=== PATIENT | male | born 1975 | race Caucasian/White ===

== ENCOUNTER 2016-02-07 16:39 | Inpatient (IN) | payer OTHER ==
[~2016-02-07 16:39] MED LIST: ATI1 PO; DES50 PO; PRO20 PO
[2016-02-07 21:07] VITALS: BP 166/116; PULSE 131; RESP 20
[2016-02-07] MEDS ORDERED: Magnesium Hydroxide 10 mL Oral Concentration PO PRN (21:55)
[2016-02-07] MEDS ORDERED: Alum-Mag Hydrox-Simeth 30 mL Suspension PO PRN (21:55)
[2016-02-07] MEDS ORDERED: Benzocaine-Menthol Lozenge 2/Pkg PO PRN (21:55)
[2016-02-07] MEDS: oxyCODONE-Acetamin 5-325 mg Tablet PO PRN (21:56)
[2016-02-07] MEDS: LORazepam 2 mg Tablet PO PRN (21:56)
[2016-02-07] MEDS ORDERED: LORazepam 2 mg Tablet PO ONE (22:50)
--- NOTE | 2016-02-08 04:20 | NUR ---
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 Reported increased depression, PTSD, alcohol intoxication and Suicidal ideation increasing over the last month. Pt with one previous psychiatric admission to this unit in 2012 presenting with similar complaints at that time. Pt also has chronic back pain currently being managed with Percocet Q4 hours. Reported binge drinking last three days and diagnosed with alcohol induced Gastritis at [facility]. Pt rates anxiety 9/10, depression 9/10, Suicidal ideation 0/10, denies A/V hallucinations. Pt presents with obvious muscle skeletal discomfort sitting awkwardly in chair with head down in a depressed manner. Pt reports heavy cloud like feeling with difficulty finding happiness with daily routine, and unable to initiate change or plan. Pt with many past stressor including loss of friends in , single father with two teenage children, and increased work load. 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 Reports long hours of difficult work has increased physical discomfort. Patient also reports his father committed suicide when he was [age] years old by gunshot. Pt noted to be hypertensive upon arrival medicated with Percocet and Ativan. BP slowly improving. Pt placed on Q4 hour vital signs with PRN parameters in place. Pt independent in ADLs, zero neuro deficit noted. Pt describes current pain unchanged from chronic location. Skin diaphoretic, patient requested and showered upon arrival to unit.
[2016-02-08] MEDS: LORazepam 2 mg Tablet PO PRN ×5 (04:28→20:50)
[2016-02-08] MEDS: oxyCODONE-Acetamin 5-325 mg Tablet PO PRN ×5 (04:31→20:54)
[2016-02-08 04:39] VITALS: BP 138/104; PULSE 102
--- NOTE | 2016-02-08 05:42 | NUR ---
Arrived to unit at 2031. Took shower and was out on unit watching TV for a while. Q4 VS due to high blood pressure. Asleep at 0030. Pt observed every 15 minutes as ordered.
[2016-02-08 08:15] VITALS: BP 146/106; PULSE 117; RESP 16
[2016-02-08] MEDS: Pantoprazole 40 mg ER24 Tablet PO SCH (08:25)
[2016-02-08 12:15] VITALS: BP 153/117; PULSE 108; RESP 16
[2016-02-08] MEDS ORDERED: OMEP20TA24 PO (12:41)
[2016-02-08] MEDS ORDERED: OXYC1TAB24 PO (12:41)
[2016-02-08] MEDS ORDERED: METH500T5 PO (17:00)
--- NOTE | 2016-02-08 18:45 | NUR ---
[id number]. nurs. S: "(Pain and anxiety) both pretty much went down from 7.5 to about a 5 then back up'... anxiety was worse when I was out there () with a lot of people and noise . " O:Pt on Q 4 hr VS, pt has been meeting parameters for admin of pain med and anxiety meds over day, receiving ativan 2 mg for anxiety and oxycodone 5/325mg for back pain at between 4-5 hr intervals over day. 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 Pt hopes to get good sleep and feel improved in am. Pt reports that he feels that he had good talk with Dr and has good plan. P:CNCP
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
--- NOTE | 2016-02-08 21:38 | NUR ---
OBSERVATIONS 0900 TO 2130 Pt spent the day in bed and in the TV area with peers. Pt social, cooperative, and polite with staff and peers; telling jokes. Maintained Q15 safety checks as directed.
[2016-02-09 00:30] VITALS: BP 108/75; PULSE 102
[2016-02-09] MEDS: LORazepam 2 mg Tablet PO PRN (04:43)
[2016-02-09] MEDS: oxyCODONE-Acetamin 5-325 mg Tablet PO PRN ×5 (04:43→23:03)
[2016-02-09 05:04] VITALS: BP 129/90; PULSE 95; RESP 14
--- NOTE | 2016-02-09 05:06 | NUR ---
Nursing Noc Pt spent most of evening in bed. Q4 VS continued as ordered. Pt reports c/o back pain with good results, lower back pain number to 4/10 from 09/17. Pt reports he will try to be more active today with hopes of improved comfort. Pt noted to have six plus hours of sleep this shift. Continuing to monitor Q15 minute safety checks, mood behavior, emotional state, and medication effectiveness. CP
[2016-02-09] MEDS: Pantoprazole 40 mg ER24 Tablet PO SCH (08:21)
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
[2016-02-09 11:00] VITALS: BP 137/99; PULSE 132; RESP 18
--- NOTE | 2016-02-09 14:55 | NUR ---
[id number]. nurs. S: "Slept hard without nightmares last night... I miss my boys...worried about what to do about work I like my job.. I have tried back braces, tens units, didn't help much...I need surgery to break the fusion put something between the vertebrae takes money can't afford it..if the VA claim came through..." O: Pt stating pain has been up to 8 /10 and down to 61/2 requesting and given percocet 5mg at 0443, 0909 and at 1446. Pt receiving valium at 0934 and 1239 for elevated b/p and HR, at 1439 b/p 137/99, pulse 132. but stating anxiety was "not so bad " at that time but pain was severe and pt given percocet as mentioned above at 1446. Pt stated had been sleeping well over morning while in bed rather than ruminating re pxs pain causing him currently. A: Pt reporting depression at 9/10, anxiety at 5-6/10, no SI. 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
[2016-02-09 15:40] VITALS: BP 139/106; PULSE 128; RESP 16
--- NOTE | 2016-02-09 18:28 | NUR ---
[facility] Day Shift Pt maintained behavioral control throughout the shift. Pt affect appears flat. Pt spends most of the AM and early afternoon resting in his room. Pt more active on the unit in the evening, watching TV or sitting quietly in the dining room. Pt is appropriate with staff and peers when active on the unit. Pt did not attend community meeting in the AM (pt excused from attending due to back pain). Pt lightly participated in unit group activities throughout the shift. Pt attended all meals and ate approx 100% of all meals.
[2016-02-09 18:30] VITALS: BP 141/99; PULSE 132; RESP 16
--- NOTE | 2016-02-09 18:50 | PCM.PNPSY ---
Subjective Date of Service Feb 09, 2016 Subjective The patient reports that he is feeling "overwhelmed" but that his flashbacks and depression are a little better. He reports some sedation although blood pressure has remained elevated, he was normotensive at 0504 this morning and was 139/106 with a heart rate of 128 this afternoon. Due to the ongoing need for lorazepam, he was switched to diazepam scheduled and he appears to be tolerating this medication. He denies side effects. He is unsure whether he will call his son's to check in on them today as he feels that he has let them down. Sleep: 7.5+ hours, "sleep is better and " Appetite: "Pretty good" Suicidal and homicidal ideation: Denies Auditory hallucinations: Denies Visual hallucinations: Denies Other Psychotic Symptoms: Denies Anxiety: "Feeling overwhelmed and "08/17 Depression: 08/17 Current Medications Current Medications Diazepam 10 mg QID PO Last administered on 02/09/16 17:59; Admin Dose 10 MG; Start 02/09/16 at 09:25 Lorazepam 2 mg OT ONCE PO Last administered on 02/07/16at 23:15; Admin Dose 2 MG; Start 02/07/16 at 22:50; Stop 02/07/16 at 22:51; Status DC Lorazepam 2 mg Q4H PRN PO Last administered on 02/09/16 04:43; Admin Dose 2 MG ; Start 02/07/16 at 21:55; Stop 02/09/16 at 09:17; Status DC Mirtazapine 30 mg HS PO Last administered on 02/08/16at 20:50; Admin Dose 30 MG ; Start 02/08/16 at 21:00 Oxycodone/ Acetaminophen 1 tab Q4H PRN PO Last administered on 02/09/16 14:46; Admin Dose 1 TAB; Start 02/07/16 at 21:55 Pantoprazole 40 mg DAILY PO Last administered on 02/09/16 08:21; Admin Dose 40 MG; Start 02/08/16 at 08:30 Mental Status Exam Vital Signs Vital Signs Date Time Temp Pulse Resp B/P Pulse Ox O2 Delivery O2 Flow Rate FiO2 02/09/16 15:40 36.0 128 16 139/106 Appearance: Neat/well groomed, Unkept (slightly) Attitude: Cooperative (minimally) Behavior: Overtly anxious Affect: Blunted Mood: Depressed Thought Process/Associations: Logical/Sequential, Goal Directed Speech Production: Paucity Speech Rate: Lags/Latency Speech Articulation: Normal Thought Content: Negativistic, Guilt Danger to Self/Suicidal Ideati: None Danger to Others: None Hallucinations: Auditory (Denies), Visual (Denies) Consciousness: Alert Orientation: Person, Place, Date, Situation Memory: Grossly Intact Estimate Intellectual Function: Average Attention/Concentration & Cogn: Grossly Intact Insight: Good Judgement: Limited Mental Health Plan The patient is a 40-year-old male with an 8+ year history of depression and post -traumatic stress disorder and substance use who presents with recent alcohol intoxication due to worsening depression and post-traumatic stress disorder. The patient has not been on medications for a number of years and would like to restart medications. He has so far tolerated mirtazapine with improved sleep and appetite. The patient continues to have elevated blood pressure and so was placed on scheduled diazepam 10 mg 4 times a day. [place] I: 1. Major depression, recurrent, severe, without psychosis 2. Post-traumatic stress disorder. 3. Alcohol use disorder. [place] II: Deferred. [place] III: See past medical history. [place] IV: Moderate to severe. [place] V: Global Assessment of Functioning 35. Medications Diazepam 10 mg by mouth 4 times a day, hold for sedation. Oxycodone acetaminophen 5- 325 every 4 hours when necessary pain Pantoprazole 40 mg daily Mirtazapine 30 mg by mouth nightly Trazodone 50 mg by mouth nightly when necessary insomnia Treatments 1. The patient will be provided a safe care environment. He is not currently expressing suicidal ideation and agrees to notify staff should this occur. As such, he does not require individual one-to-one supervision suicide precautions. 2. The patient is encouraged to participate in group and milieu therapy. 3. The patient will meet with the treatment team on a daily basis to discuss symptoms, side effects, and response to treatment. 4. The patient was given informed consent regarding mirtazapine and agreed to continue. Attempts were made to verify the most recent dose of medications; however, the pharmacy was unable to provide this information as their records did not go back that far. They advised calling the following number on Wednesday or Wednesday for that information: or to call [employer] service at [phone]. We will start at 30 mg nightly until verified and may increase to 45 or 60 mg depending on prior response. 5. We discussed the use of Prazosin for nightmares and if mirtazapine ineffective we will prescribe prazosin for nightmares. 6. The patient's elevated blood pressure is being addressed currently with diazepam for presumptive alcohol withdrawal symptoms. If this does not eventually return to normal, the patient may need antihypertensives and as such prazosin may be beneficial in reducing blood pressure and addressing posttraumatic stress disorder symptoms. 7. Trazodone 50 mg p.o. nightly p.r.n. insomnia. 8. Pantoprazole 40 mg daily for alcoholic gastritis prophylaxis. Frankie Gomez MD Feb 09, 2016 18:50
[2016-02-09 23:00] VITALS: BP 141/104; PULSE 131; RESP 18
[2016-02-10 03:00] VITALS: BP 121/84; PULSE 87; RESP 14
[2016-02-10] MEDS: oxyCODONE-Acetamin 5-325 mg Tablet PO PRN ×5 (03:01→19:25)
--- NOTE | 2016-02-10 05:39 | NUR ---
Nursing noc Pt reports lack of activity since arrival has increased chronic back pain. K-pad in use for comfort. Pt continues to ask for PRN pain medication to be given as available including to wake him if sleeping. Pt denies Suicidal ideation and appears more relaxed and conversational. Noted to attend evening wrap up and have snacks. First noted, by Q15 minute safety checks to be asleep at 0015. Continuing to monitor mood, behavior, emotional state, and medication effectiveness. Pt tollerating Remeron without reported side effects. CP
--- NOTE | 2016-02-10 06:29 | NUR ---
OBSERVATIONS 1900 TO 0700 Pt appears more comfortable and at-ease than previous shift. Pt socialized with peers in TV and dining areas throughout the evening. Pt attended evening wrap-up and stated that he accomplished goals of showering and having a good day. Pt rated mood 6-10. Pt c/o back pain later in the evening causing difficulty falling asleep. Pt first noted asleep 0015, woke briefly twice. Maintained Q15 checks for safety as directed.
[2016-02-10] MEDS: Pantoprazole 40 mg ER24 Tablet PO SCH (08:21)
--- NOTE | 2016-02-10 13:25 | NUR ---
Auto Tester./ c.m. S.:"I'm a little drowsy. I have less pain today and my withdrawal is less." O.: met with pt. in his room. He was in bed resting. He slept "good" last night. He had "a very strange, funny dream that was going on and on about my friend who committed suicide." He was talking about his father who tried to kill himself and how it effected everybody. He felt a lot of guilt for not helping his father or his friend. He didn't call his kids yesterday. He said that he would call them today. He was concerned about his kids reaction on this hospitalization. He denied SI/HI, denied AH/VH. He wanted to get help with connection to [facility] in [facility]. He rated depression at 6/10 and anxiety at 6/10. A.: pt. is cooperative, isolative, quiet, anxious and worried a lot. P.: monitor behavior, encourage pt. to stay more in a public area, contact Pain Clinic in [facility]; follow care plan.
--- NOTE | 2016-02-10 14:11 | NUR ---
Nursing Note [id number] Behavior, PRN Medications S/O: Pt up for meals. Good appetite. Conversation tracking clear & organized with normal rate & rhythm. Pt is extremely polite & cooperative. C/O back pain several times during the day. Percocet given prior to shift. Pain reduced from an "8" on a scale of 1-10/10 the worst down to a "6." Percocet given again at 1130 for pain at a "7" which was reduced to a "5." Pt c/o anxiety at 1235. B/P 141/98, pulse 134, & respirations 17. Pt requested Valium 5 mg be given instead of 10 mg d/t higher dose make him "tired." Pt currently in TV area talking to peers. A: Pt has difficulty controlling pain & emotions. P: Provide supportive environment. Monitor medications & effects.
--- NOTE | 2016-02-10 20:17 | PROG NOTE ---
[address] [address] PROGRESS NOTE PATIENT: TOM BOURGEOIS : 1975 MR#: [id number] ADMIT: 02/07/2016 JOB ID: [id number] DATE: 02/10/2016 CHIEF COMPLAINT: "I think it is a good idea, I really do not have anybody to talk to, my brother just tells me to "suck it up." This is per patient report. HISTORY OF PRESENT ILLNESS: As stated above, the patient met with myself and Mindy as well as later in the hallway discussing the above presentation. The patient identified that he does feel at the beginning of January that he began to fall back into another episode of depression. He indicated that, unfortunately, he had turned to alcohol which only made things worse. He is glad that he has been re-initiated on medications including Remeron currently dispensed at 30 mg q.h.s. indicating that it was effective for him in the past. He identified that he would be willing to follow up with outpatient counseling as well as medication management and also will return to local chapters in [place]. MENTAL STATUS EXAM: He was bright, cooperative, interactive. He maintained good eye contact throughout. His speech was of normal tone, frequency, and volume. His mood was neutral. His affect is congruent. He denied any evidence of current suicidal, homicidal ideation. He denied any active hallucinations, delusions. No evidence of paranoia. He was alert, oriented to time and place. Attention and concentration intact. Insight and judgment are gaining. PHYSICAL EXAMINATION: Vital signs are current. Temperature is 36.4, pulse 87, respirations 14, BP 121/84. MEDICATION REVIEW: Includes: 1. Remeron 30 mg q.h.s. 2. Valium 10 mg q.i.d. 3. Trazodone 50 mg p.r.n. at h.s. 4. Percocet 1 tablet q.4 h. p.r.n. for pain. ASSESSMENT: [place] I 1. Major depressive disorder, recurrent type, nonpsychotic. 2. Posttraumatic stress disorder, chronic. 3. Alcohol use disorder. [place] II Deferred. [place] III History of chronic pain. [place] IV Stressors are noted for history of chronic pain, significant intensification of depressive symptoms, recent alcohol use. [place] V Global Assessment of Functioning: Current 35. PLAN: 1. Recommendations for continuation of Remeron 30 mg q.h.s. 2. Recommendations for p.r.n. transition of Valium to q.i.d. versus scheduled. 3. Recommended followup including outpatient individual therapy, medication management, and local support chapters for AA in [place]. 4. Recommended probable discharge within the next 48 hours.
[2016-02-11] MEDS: oxyCODONE-Acetamin 5-325 mg Tablet PO PRN ×6 (00:07→22:36)
[2016-02-11 00:28] VITALS: BP 110/71; PULSE 102
--- NOTE | 2016-02-11 02:43 | NUR ---
Observations 1900 to 0700 Pt affect and behavior remains the same as in previous shifts worked. Pt was out in the DR for quite some time last night. Pt watched TV and attended group last night. Pt was polite and cooperative. Pt first appeared asleep at 21:30 and was observed every 15 minutes through the night as directed.
--- NOTE | 2016-02-11 06:30 | NUR ---
Nursing note NOC Patient woke 3+ times over noc shift. C/O 7-8-9/10 back pain. Accepted oxycodone/apap 5/325mg prn at 1925, 0007, 0554 this shift. Very pleasant, "Yes, Maam". States he served in the . Declined crackers with medication. Accepted water. States he has enough pillows. BP this shift WNL.
[2016-02-11] MEDS: Pantoprazole 40 mg ER24 Tablet PO SCH (08:21)
[2016-02-11 10:00] VITALS: BP 140/103; PULSE 138; RESP 17
--- NOTE | 2016-02-11 15:10 | PROG NOTE ---
[address] [address] PROGRESS NOTE PATIENT: TOM BOURGEOIS : 1975 MR#: [id number] ADMIT: 02/07/2016 JOB ID: [id number] DATE: 02/11/2016 CHIEF COMPLAINT: "I hope I can get an appointment with [facility]." This is per patient report. HISTORY OF PRESENT ILLNESS: As stated above, the patient identified that he is awaiting a call back from [facility] in reference to his chronic difficulties with low back pain. He reports that he is aware that otherwise there are appointments scheduled for him for both a psychiatrist and therapist. He reports that he continues to feel somewhat depressed indicating that he has not had contact with his son at this time but hopes that he will make connections later on this afternoon. He denies any evidence of other distress. OBJECTIVE: On mental status exam, he was bright, cooperative, interactive. He maintained good eye contact. His speech was of normal tone, frequency, and volume. His mood was neutral. Affect was congruent. Thought process showed no evidence of random flight of ideas, loose or disconnected thinking. Thought content, he denied any evidence of current suicidal or homicidal ideation. No evidence of active hallucinations or delusions. He was alert, oriented to time, place, situation. Insight and judgment are fair. PHYSICAL EXAMINATION: Vital signs of current. Temperature is 36.5, pulse 138, respirations 17, BP 140/103. CURRENT MEDICATIONS: Include: 1. Valium 5 mg q.i.d. p.r.n. 2. Remeron 30 mg q.h.s. 3. Trazodone 50 mg h.s. p.r.n. 4. Percocet 5/325, 1 tablet q.4 h. ASSESSMENT: AXIS I 1. Major depressive disorder, recurrent type, nonpsychotic. 2. Posttraumatic stress disorder, chronic. AXIS II Deferred. AXIS III Chronic pain. AXIS IV Stressors are noted for chronic mental health issues, chronic pain. AXIS V Global Assessment of Functioning current 40. PLAN: 1. Recommendation is to discharge tomorrow for continuation of aftercare. 2. Recommendation is for continuation of all medications as noted.
--- NOTE | 2016-02-11 15:55 | NUR ---
Snake Charmer./ c.m. S.:"I'm feeling so-so..." O.: met with pt. to discuss his discharge plan. Pt. denied SI/HI, denied AH/VH or paranoid/delusional thoughts. He was concerned about having "vivid dreams" because "usually" he didn't have dreams at all. He rated depression at 8/10 and anxiety at 6/10. He didn't have a chance to talk to his children yet. He is planing to do it tonight. He was pleased to know about all scheduled follow up appts including [facility] in [place]. Pt. wants to go home tomorrow. A.: pt. is cooperative, more social with peers. P.: monitor behavior, work on Safety plan, follow care plan.
--- NOTE | 2016-02-11 16:56 | NUR ---
Observations 5085-2118 Pt was asleep upon start of shift. He attended breakfast, eating 100%. Pt appeared quiet and isolated at times, appearing to be deep in thought. Although he did spend the afternoon and evening in the common areas with peers socializing more. Pt attended lunch and dinner, eating 100%. Pt shared with this creative services writer that he lives in [place] and is a [place]. He stated that he missed his kids. Pt was noticeably more engaged with others then in previous days and spent less time in bed. Pt was observed every 15 minutes of shift as directed.
--- NOTE | 2016-02-11 18:31 | NUR ---
Nursing: Day shift: "I spoke to my brother and he would not let me speak to my boys. He says he is taking care of them now. He isn't supportive. " Pt feels very upset because of information received by phone call with his brother. He has sad facial expression PRN meds. Has asked for and received Valium 5 mg x 2 and percocet x3 during this shift. pain is at 8/10 when he receives mds and he gets relief to about 6/10. He is aware that the plan is to discharge tomorrow. He is happy about discharge f/u plans and future oriented. A: Depressed. Anxious. In pain. P: Supportive approach.
--- NOTE | 2016-02-12 02:09 | NUR ---
Observations 1900 to 0700 Pt affect and behavior remains the same as in previous shifts worked. Pt was out in the DR for quite some time last night. Pt watched TV and attended group last night. Pt first appeared asleep at 00:00 and was observed every 15 minutes through the night as directed.
[2016-02-12] MEDS: oxyCODONE-Acetamin 5-325 mg Tablet PO PRN ×4 (05:49→20:46)
--- NOTE | 2016-02-12 06:08 | NUR ---
Nursing Noc Pt presents very anxious and depressed this shift. Pt reports being depressed that his brother is treating him this way. Brother refusing to come get patient. Pt will need assistance getting back to [place]. Pt requested phone number to [place] [facility] program as he was once a member and believes a sponsor might be helpful. Brother reportedly it taking care of patients children and told patient that they don't want to come back to him. AA phone # . Continuing to monitor safety with Q15 minute visual checks, mood, behavior, emotional state, medication effectiveness and sleep time. BHCP.
[2016-02-12] MEDS: Pantoprazole 40 mg ER24 Tablet PO SCH (08:02)
--- NOTE | 2016-02-12 09:06 | PCM.DIMED ---
Discharge Instructions Date of Service Feb 12, 2016 Dates of Hospitalization Feb 07, 2016 at 20:40 Discharge Diagnosis Discharge Diagnosis Major Depression Recurrent Nonpsychotic PTSD chronic Diet No restrictions Activity No restrictions Bishop Bowen DO Feb 12, 2016 09:06
[2016-02-12] MEDS ORDERED: DIAZ5TAB PO (09:10)
[2016-02-12] MEDS ORDERED: OXYC1TAB24 PO (09:10)
[2016-02-12] MEDS ORDERED: MIRT30TA6 PO (09:10)
--- NOTE | 2016-02-12 13:52 | PROG NOTE ---
[address] [address] PROGRESS NOTE PATIENT: TOM BOURGEOIS : 1975 MR#: [id number] ADMIT: 02/07/2016 JOB ID: [id number] DATE: 02/12/2016 CHIEF COMPLAINT: "I had a long conversation with my brother, he said some pretty horrible things, I do not feel like I am ready to leave yet, I'm afraid that if I was left alone that I would only drink and become suicidal." HISTORY OF PRESENT ILLNESS: As stated above, the patient identified that last evening he had a lengthy conversation with his brother on the telephone indicating that he was not going to be returning his 13 and 11-year-old son. The patient became quite tearful stating that he feels that he is losing control of his life. He openly identified that he will be placing calls with his sponsor from to get further support and indicates that he feels that the sponsor will be able to actually transport him back home as well. He indicates that he is ready to allow his two sons, ages 13 and 11, to make a decision on their own when they are ready to come back home. He openly identified that he feels overwhelmed, rejected by his brother and struggles with significant feeling of emptiness. OBJECTIVE: On mental status examination, he is tearful throughout. He made intermittent eye contact. His speech was slow to respond. His mood was depressed. His affect was congruent. His thought process showed no evidence of current flight of ideas, loose or disconnected thinking. No racing thoughts. Thought content: He denied any evidence of current homicidal ideation. He did have fleeting suicidal thoughts last evening. He denies any active hallucinations or delusions. He was alert, oriented to person, place, time, situation. Insight and judgment are fair. PHYSICAL EXAMINATION: All vital signs are current. Temperature is 36.5, pulse 138, respirations 17, BP 141/100. MEDICATION REVIEW: Includes: 1. Valium 5 mg 4x daily p.r.n. 2. Remeron 30 mg q.h.s. 3. Oxycodone 1 tablet q.4 hours p.r.n. for pain. ASSESSMENT: AXIS I 1. Major depressive disorder, recurrent type, nonpsychotic. 2. Alcohol use disorder, mild. 3. Posttraumatic stress disorder, chronic. AXIS II Deferred. AXIS III History of chronic pain. AXIS IV Stressors are noted for recurrent alcohol use issues, significant life transition. AXIS V Global assessment of functioning of current 40. PLANS: 1. Recommendations for continuation of hospitalization with probable plan of discharge tomorrow. 2. The patient will be calling his friends and support system through the local AA chapters for transport tomorrow. 3. Followup as previously noted with outpatient care providers including psychiatrist, individual therapist and local AA support groups.
--- NOTE | 2016-02-12 15:32 | NUR ---
Obs Dayshift Pt stated that today was a little better than yesterday, not as upset as he was last night. Pt was relieved after talking w/ that he would be staying until tomorrow, giving him a little more time to get ahold of support people from [employer] and so he wouldn't have to depend on brother. Pt also spoke w/ his Boss and was smiling because he was told that he was appreciated at work and they were happy to get him back when he was able. Pt also found out he had more insurance than what he had previously thought that would back pay him for sometime off of work. Pt is hopeful for the future, depressed, ok eye contact, head still down at times, very polite, linear and Oriented. Pt hopeful to get his kids back from brother soon. Good ADL's, Good meals
--- NOTE | 2016-02-12 16:59 | NUR ---
[id number]. nurs. S: "That was my AA sponsor he said he will be able to help me clean up the mess, the mess I left when I was drinking and the other mess I have made of things" O: Pt stated that he was able to speak on phone to prev. AA sponsor who is available to stay with him as he restabilizes at home. Pt states that his employer has also told him that he can be on light duties when he returns to work and he is hopeful that his pain clinic apt will be helpful. A: Pt received anxiety and pain medications of Valium and Percocet at 0549, 1156 and 1637, stating anxiety was reduced to a 2/10 and went up to 8/10 with anxiety re. discharging home. Pt states pain ranging between 7 and 5/10 after med wking. Pt reports that he has no current SI. Pt states that he gets on well with sponsor and employment associates and is hopeful that he can progress towards building relationship with sons. P:CNCP
--- NOTE | 2016-02-12 18:19 | NUR ---
Case Management/Counseling: S: "I'm afraid if I leave the hospital today, I might make bad choices." O: Met with patient. Patient slept 6+ hours last night per staff. He denies S/I and H/I. He also denies auditory and visual hallucinations. Depression is 5/10 and anxiety is 4/10. A: Patient is cooperative, tearful, depressed, sad, fair insight, fair judgment. P: Follow care plan, coordinate out-patient providers.
[2016-02-12 22:15] VITALS: BP 143/100; PULSE 123
--- NOTE | 2016-02-13 05:43 | NUR ---
Nursing Noc Pt presents interactiving with staff and patients carrying conversation and laughing appropriately. Planned discharge in am. Continuing to monitor sleep by Q15 minute safety checks, mood, behavior, emotional state and medications. CP
[2016-02-13] MEDS: oxyCODONE-Acetamin 5-325 mg Tablet PO PRN ×4 (06:27→14:51)
[2016-02-13] MEDS: Pantoprazole 40 mg ER24 Tablet PO SCH (07:45)
--- NOTE | 2016-02-13 13:09 | DIS ---
[address] [address] DISCHARGE SUMMARY PATIENT: TOM BOURGEOIS : 1975 MR#: [id number] ADMIT: 02/07/2016 JOB ID: [id number] DIS: 02/13/2016 CORRECTED REPORT: ADMITTING DIAGNOSES: [place] I: 1. Major depressive disorder, recurrent type, severe, without psychosis. 2. Post-traumatic stress disorder, chronic. 3. Alcohol use disorder. [place] II: Deferred. [place] III: See past medical history. [place] IV: Moderate to severe. [place] V: Global Assessment of Functioning of current 35. DISCHARGE DIAGNOSES: [place] I: 1. Major depressive disorder, recurrent type, severe, without psychosis. 2. Post-traumatic stress disorder, chronic. 3. Alcohol use disorder. [place] II: Deferred. [place] III: History of chronic pain. [place] IV: Stressors are noted for life transition, alcohol use. [place] V: Global Assessment of Functioning of current 45. REASON FOR ADMISSION: Patient was a 40-year-old male with a history of depression, PTSD, and recent alcohol relapse. During the course of hospitalization patient was agreeable to reinitiate doses of Remeron titrated to 30 mg q.h.s. with noted positive response in the past. Throughout hospital course the patient openly identified significant struggles with recent relapse of alcohol and he was agreeable to reinitiate outpatient interventions through , local support groups. On the day prior to discharge the patient had been informed by his sibling brother that he has two children, ages 13 and 11, were unwilling to return to the home environment and through a process of interventions of support by myself and additional treatment team members the patient agreed to continue to work with his support group of AA and keep the door open with the possibility of his at children's return at some point. Throughout hospital course patient was agreeable to refer to a pain clinic and a confirmed appointment was also noted for March 11 due to a history of long-term chronic back pain with fusion of L5-S1 joints. Throughout hospital course patient denied any evidence of further suicidal intent or plan. He admitted to extreme feelings of hopelessness at times and was encouraged to continue with outpatient therapy complements. CONDITION AT TIME OF DISCHARGE: He was bright, cooperative, interactive. He maintained good eye contact throughout. His speech was of normal tone, frequency, and volume. His mood was mildly depressed. His affect was congruent. His thought process showed no evidence of racing thoughts, flight of ideas, looseness or disassociation. Thought content: No evidence of current suicidal ideation, intent, or plan. No evidence of active hallucinations, delusions. No evidence of paranoia. He was alert, oriented to person, place, time, situation. Attention and concentration intact. Memory intact in the short term, senior care, recent. Insight and judgment are fair. PLAN: 1. Recommendations for followup appointments with the [facility] in [facility] on March 11 per case management. 2. Followup with care providers in [place] including medication management, individual therapy. Appointments confirmed through returned case inspector. 3. Continuation of Remeron 30 mg q.h.s. one month supply, no refills. Reason for usage: PTSD and anxiety and depression. 4. Continuation of Valium 5 mg q.i.d. p.r.n. for anxiety. One month supply, no refills. 5. Continuation of Percocet 5/325 mg 1 tablet q.4 h. p.r.n. for pain, #60 tablets. Reason for usage: Chronic pain. Corrected by NED 03/26/16 at 8:40am Added dis date
[2016-02-13 13:48] VITALS: BP 132/95; PULSE 117; RESP 16
--- NOTE | 2016-02-13 15:26 | NUR ---
[id number]. nurs. Discharge note. Pt stating that he has no SI, " before I was depressed and overwhelmed now I am still depressed but I am optimistic " Pt stating that he is pleased that employer is helping him out with providing a light duties position and with [employer] insurance coverage for past back injury. Pt has AA sponsor to help him sort out mess at home and provide ongoing support while he deals with emotional issues re. sons. Pt given percocet and valium at 1054 and 1451 for c/o 7/10 pain and the same for anxiety. Pt stating that although meds would not appear to be reducing pain or anxiety "they are actually stopping the top from blowing off." Pt's prescriptions faxed to А[facility] and pt had hard copies with him and verbalizing understanding of med plan, f/u apts, locations of addresses, and has ability to attend as sheduled. Pt out on social and considerate towards peers while awaiting AA sponsors arrival and discharged with him at 1455.
--- NOTE | 2016-02-13 18:11 | NUR ---
Case Management/Counseling: S: "My AA sponsor is going to pick me up and that is very helpful." O: Met with patient. Patient slept 7 hours last night per staff. He denies S/I and H/I. He also denies auditory and visual hallucinations. Depression is 7/10 and anxiety is 6-7/10. When asked his mood, patient stated, "Positive, but anxious." Out-patient appointments: Dr. Wiliam Lala, PHd, therapist, 02/17/16 at 3:30pm; Joy Crowe PA-C, PCP; 02/19/16 at 12:00pm; Dr. Peguero, 02/19/16 at 9:30am; TEN Spain, [facility], 03/12/16 at 8:30am. A: Patient is cooperative, hopeful, future oriented, fair insight, fair judgment. P: Follow care plan, coordinate out-patient providers.
== END 2016-02-13 14:55 | disposition home or self-care (01) | DRG 885 ==
LOC: MHC 20:40
PROVIDERS: ADMIT Psychiatry & Neurology Psychiatry; ATTEND Psychiatry & Neurology Psychiatry
DX: F33.2 Major depressive disorder, recurrent severe without psychotic features (principal); F10.99 Alcohol use, unspecified with unspecified alcohol-induced disorder; F43.12 Post-traumatic stress disorder, chronic; G89.29 Other chronic pain

== ENCOUNTER 2016-02-24 18:05 | Emergency (ER) | payer OTHER ==
[~2016-02-24] VITALS: Ht 182.9 cm; Wt 110.0 kg
[~2016-02-24 18:05] MED LIST changes: -ATI1 PO; -DES50 PO; +DIAZ5TAB PO; +METH500T5 PO; +MIRT30TA6 PO; +OMEP20TA24 PO; +OXYC1TAB24 PO; -PRO20 PO
[2016-02-24 18:08] VITALS: BP 135/74; PULSE 50; RESP 16; O2SAT 100
[2016-02-24 18:21] VITALS: BP 157/113; PULSE 123; RESP 16; O2SAT 97
[2016-02-24 19:12] VITALS: BP 155/112; PULSE 120; RESP 16; O2SAT 98
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
[2016-02-24] MEDS ORDERED: OXYC1TAB24 PO (21:35)
[2016-02-24] MEDS ORDERED: CLON0.2T PO (21:36)
[2016-02-24 21:56] VITALS: BP 146/94; PULSE 104; RESP 16; O2SAT 98
== END 2016-02-24 21:57 | disposition home or self-care (01) ==
LOC: SED 18:05
DX: M54.41 Lumbago with sciatica, right side (principal); M54.42 Lumbago with sciatica, left side; G89.29 Other chronic pain; F11.23 Opioid dependence with withdrawal; R00.0 Tachycardia, unspecified; F17.200 Nicotine dependence, unspecified, uncomplicated; Z87.828 Personal history of other (healed) physical injury and trauma